=== PATIENT | female | born 1985 | race Caucasian/White ===

== ENCOUNTER → 2017-04-06 | Outpatient (CLI) | payer OTHER ==
[~2017-04-06] MED LIST: ASPIR LOW81 MG PO; ATIVAN1 MG PO; BACTRIM DS 8001 TA1 PO; BENADRYL ALLERG25 M4 PO; CLARITIN10 MG PO; COMPAZINE10 MG PO; DARVOCET N 1001 TAB PO; DAYPRO600 M1 PO; DEPO PROVER150 MG/M1 IM; Fioricet 325 MG1 TAB PO; HYDROCODONE BIT1 T11 PO; IBU-8800 MG PO; LOMOTIL 0.025 M1 TA1 PO; LOMOTIL 0.025 M1 TAB PO; MAXALT5 MG PO; MEDROL DOSEPAK4 MG PO; MOTRIN800 MG PO; NAPROSYN500 MG PO; NORCO 7.5-3251 EACH PO; OMNICEF300 MG PO; PERCOCET 325 MG1 TA7 PO; PRENATAL 1 PLUS1 TAB PO; ROBITUSSIN AC 110 ML PO; TAGAMET300 MG PO; VALIUM10 MG; VALIUM5 MG PO; VICODIN 5/500 505 MG PO; VICODIN 500 MG-1 TAB PO; ZANTAC 150150 MG PO; ZANTAC150 MG PO; ZITHROMAX Z PA250 MG PO; ZOFRAN4 MG PO
== END | disposition home or self-care (01) ==
LOC: CARD 13:30
DX: G47.33 Obstructive sleep apnea (adult) (pediatric) (principal); E66.01 Morbid (severe) obesity due to excess calories

== ENCOUNTER 2017-04-28 13:59 | Inpatient (IN) | payer OTHER ==
[~2017-04-28] VITALS: Ht 165.1 cm; Wt 124.3 kg
[2017-04-28] VITALS (10 sets, daily range): BP systolic 123–144; BP diastolic 64–85
--- NOTE | ~2017-04-28 | O ---
[place], [place] OPERATIVE NOTE NAME: JOANIE HIGGINS [facility] #: [id number] UNIT #: [id number] ROOM: 427 DOCTOR: DIMA NICOLAS MD BIRTHDATE: [birth year] DOS: 04/28/2017 PREOPERATIVE DIAGNOSIS: Acute appendicitis. POSTOPERATIVE DIAGNOSIS: Acute appendicitis. PROCEDURE: Laparoscopic appendectomy. SURGEON: Dima Nicolas MD [employer] MANAGER: JOSUE. ANESTHESIA: General with endotracheal intubation. INDICATIONS: This is a 32-year-old lady who was admitted with abdominal pain and a CAT scan that showed appendicitis with appendicolith. It was decided to take the patient to the operating room for a laparoscopic, possible open appendectomy. The procedure and its complications were explained to the patient in detail preoperatively. Complications that were discussed included but were not limited to bleeding, infection, hematoma/seroma/abscess formation, prolonged postoperative pain, damage to underlying vital structures and incisional hernia formation. She agreed to proceed. DESCRIPTION OF PROCEDURE: After identifying the patient, the patient was brought to the operating suite and laid in the supine position. After induction of general anesthesia, a timeout procedure was called and a Hyman catheter was inserted into the urinary bladder. The parts were then painted and draped in the usual sterile fashion. An incision below the umbilicus in a transverse fashion was made. The skin and the subcutaneous tissue were incised in the line of the incision. The fascia was incised vertically and a 10 mm port was introduced into the peritoneal cavity. A pneumoperitoneum was created. Under direct vision, a right upper quadrant incision of 10 mm and a suprapubic incision of 5 mm was made and appropriate sized ports were introduced. The cecum had some adhesions, which were taken down with the help of electrocautery. The appendix inflamed, was found to be in retrocecal position. It was dissected away from the retroperitoneum structures and held up with an Endo Toano forceps. Thereafter, the base of the appendix as well as the mesoappendix was stapled across with the help of an Endo-CHU stapler. The appendix was then placed in an EndoCatch bag and removed from the peritoneal cavity and sent for histopathological diagnosis. Thereafter, the mesoappendix and the region of the stomach was visualized for any bleeding and there was no bleeding seen. The area was irrigated with the help of saline and again hemostasis was confirmed. Thereafter, the right upper quadrant and the suprapubic port was removed and there was no bleeding seen. The umbilical port was also removed and 0 Vicryl was used to close the fascial defect. Thereafter, the subcutaneous tissue was irrigated and the edges of the skin were infiltrated with 1% plain lidocaine and was approximated with the help of 4-0 Vicryl in a subcuticular running fashion. Dressings were placed. Hyman catheter was removed. The patient was extubated uneventfully and brought back to the recovery room in a stable fashion. There were no complications. Dr. Ch [place], [place] OPERATIVE NOTE NAME: JOANIE HIGGINS UNIT #: [id number] ROOM: [facility] DOCTOR: DIMA NICOLAS MD BIRTHDATE: [birth year] Maria Isabel, the attending surgeon, was present throughout the operating case. Dima Nicolas MD CM:OPRECORD:OPERATIVE NOTE 41 [id number] DIMA NICOLAS MD 04/28/171930 interface
[2017-04-28 14:30] LABS: BASO # 0.1 10*3/uL (0.0-0.1); BASO % 0.3 % (0.0-1.0); EOS # 0.2 10*3/uL (0.0-0.4); EOS % 1.1 % (1.0-4.0); HEMATOCRIT 43.4 % (37.0-47.0); HEMOGLOBIN 14.2 g/dl (12.0-16.0); LYMPH # 4.4 10*3/uL (1.3-4.4); LYMPH % 26.2 % (27.0-41.0); MEAN CELL VOLUME 86.1 fl (81.0-99.0); MEAN CORPUSCULAR HGB 28.2 pg (27.0-31.0); MEAN CORPUSCULAR HGB CONC 32.7 g/dl (33.0-37.0); MONO # 1.3 10*3/uL (0.1-1.0); MONO % 7.8 % (3.0-9.0); NEUT # 10.8 10*3/uL (2.3-7.9); NEUT % 63.7 % (47.0-73.0); PLATELET COUNT AUTOMATED 268 10*3/uL (130-400); RED BLOOD COUNT 5.04 10*6/uL (4.10-5.10); RED CELL DISTRI WIDTH 14.5 % (0-14.5); WHITE BLOOD COUNT 16.9 10*3/uL (4.8-10.8)
[2017-04-28 14:35] LABS: BILIRUBIN NEGATIVE (NEGATIVE); BLOOD NEGATIVE (NEGATIVE); CLARITY CLEAR (CLEAR); COLOR YELLOW (YELLOW); GLUCOSE NEGATIVE (NEGATIVE); KETONE NEGATIVE (NEGATIVE); LEUKO ESTERASE NEGATIVE (NEGATIVE); NITRITE NEGATIVE (NEGATIVE); SPECIFIC GRAVITY <= 1.005 (1.005-1.030); UROBILINOGEN 0.2 E.U./dl (0.2-1.0)
[2017-04-28 14:42] LABS: BACTERIA 1+; RBC 0-2 rbc/hpf (0-2)
[2017-04-28 14:45] LABS: ALBUMIN 3.4 gm/dl (3.1-4.5); ALKALINE PHOSPHATASE 137 U/L (45-117); BUN 18 mg/dl (7-24); CHLORIDE 102 mmol/L (98-107); CREATININE 0.86 mg/dL (0.55-1.02); LIPASE 131 U/L (73-393); POTASSIUM 3.3 mmol/L (3.5-5.1); SGOT/AST 14 IU/L (3-35); SGPT/ALT 35 U/L (12-78); SODIUM 139 mmol/L (136-145); TOTAL PROTEIN 7.1 gm/dL (6.4-8.2)
--- NOTE | 2017-04-28 16:21 | NUR ---
A 32, admitted to , under the services of JOHN Tang DO with a diagnosis of ELEVATED BLOOD PRESSURE READING/ACUTE BARBIE. Chief complaint is PAIN. Patient arrived via stretcher from ER. Initial assessment completed. Vital signs taken and recorded. JOHN TANG DO notified of admission to the unit. Orders received. See assessment for past medical history, medications and allergies. Patient and/or family oriented to unit. [facility] visitation policy reviewed. Clothing/patient valuable form completed. ANALIA LOW
[2017-04-28] MEDS ORDERED: NORCO 7.5-3251 EACH PO (16:25)
--- NOTE | 2017-04-28 16:25 | NUR ---
PATIENTS HOME MEDIATION VERIFIED. DR HAGAN NOTIFIED.
--- NOTE | 2017-04-28 16:25 | NUR ---
ASSESSMENT COMPLETE. SKIN INTACT WITH NO WOUNDS. PT WANTS FLU SHOT ON DC.
--- NOTE | 2017-04-28 16:31 | NUR ---
PATIENT PLACED ON PULSE OX AND MONITOR DUE TO NARCOTIC ADMINISTRATION
--- NOTE | 2017-04-28 16:50 | NUR ---
PT LEFT FLOOR VIA BED FOR SCHEDULED SURGERY.
--- NOTE | 2017-04-28 21:30 | NUR ---
prn morphine given for 5/10 abdominal pain.
--- NOTE | 2017-04-28 21:30 | NUR ---
PRN MORPHINE GIVEN FOR 5/10 ABDOMINAL/INCISIONAL PAIN.
--- NOTE | 2017-04-28 22:30 | NUR ---
PRN PAIN MED EFFECTIVE, PT RATES PAIN 3/10.
[2017-04-29] VITALS: BP 113/53
--- NOTE | 2017-04-29 00:04 | NUR ---
prn pain med given for a 3/10 incisional pain.
--- NOTE | 2017-04-29 00:05 | NUR ---
prn restoril given for sleep.
--- NOTE | 2017-04-29 01:00 | NUR ---
prn pain med and restoril appears effective, pt is sleeping, respirations easy and regular.
--- NOTE | 2017-04-29 04:34 | NUR ---
prn pain med given for a 6/10 incisional pain.
--- NOTE | 2017-04-29 05:30 | NUR ---
prn pain med minimally effective, pt reports 4/10 incisional pain.
--- NOTE | 2017-04-29 05:46 | NUR ---
prn pain med given for pt report 4/10 incisional pain.
[2017-04-29 06:05] LABS: BASO % 0.1 % (0.0-1.0); HEMATOCRIT 38.7 % (37.0-47.0); HEMOGLOBIN 12.4 g/dl (12.0-16.0); LYMPH # 1.8 10*3/uL (1.3-4.4); LYMPH % 9.5 % (27.0-41.0); MEAN CELL VOLUME 86.8 fl (81.0-99.0); MEAN CORPUSCULAR HGB 27.8 pg (27.0-31.0); MEAN PLATELET VOLUME 10.1 fl (9.6-12.3); MONO # 0.7 10*3/uL (0.1-1.0); NEUT # 15.8 10*3/uL (2.3-7.9); NEUT % 85.4 % (47.0-73.0); PLATELET COUNT AUTOMATED 268 10*3/uL (130-400); RED BLOOD COUNT 4.46 10*6/uL (4.10-5.10); RED CELL DISTRI WIDTH 14.3 % (0-14.5); WHITE BLOOD COUNT 18.5 10*3/uL (4.8-10.8)
[2017-04-29 06:36] LABS: BUN 13 mg/dl (7-24); CHLORIDE 101 mmol/L (98-107); CHOLESTEROL 181 mg/dL (<200); CREATININE 0.75 mg/dL (0.55-1.02); MAGNESIUM 2.1 mg/dL (1.5-2.1); PHOSPHOROUS 3.9 mg/dL (2.5-4.9); POTASSIUM 4.1 mmol/L (3.5-5.1); SGOT/AST 24 IU/L (3-35); SGPT/ALT 34 U/L (12-78); SODIUM 138 mmol/L (136-145); TRIGLYCERIDES 69 mg/dl (<150); VLDL CHOLESTEROL 14 mg/dL (6-40)
[2017-04-29 06:43] LABS: ALKALINE PHOSPHATASE 113 U/L (45-117); HDL CHOLESTEROL 47 mg/dl (40-60); LDL CHOLESTEROL 120 mg/dL (9-159); THYROID STIM HORMONE (HS) 0.266 uIU/ml (0.358-4.75); TOTAL PROTEIN 6.3 gm/dL (6.4-8.2)
[2017-04-29 06:49] LABS: ACT PARTIAL THROMBO TIME 25.5 SECONDS (20.8-31.5)
[2017-04-29 07:47] LABS: VITAMIN D, 25-HYDROXY 17.4 ng/mL (30-100)
--- NOTE | 2017-04-29 08:15 | NUR ---
ASSESSMENT COMPLETE. LAP SITES X3 ALL SITES WELL APPROXIMATED, DERMABOND, SMALL AMOUNT OF OF DRIED BLOOD NOTED AT ALL THREE SITES. ECCHOMOSIS NOTED ON ABDOMEN. PT STATES ABDOMINAL PAIN, PT WANTS TO WAIT FOR PAIN MEDICATION UNTIL AFTER BREAKFAST. PT STATES PAIN MEDICAION WAS NOT EFFECTIVE THROUGHOUT THE NIGHT. PT WILL NOTIFY NURSING STAFF WITH NEEDS
[2017-04-29 08:30] VITALS: BP 137/68
--- NOTE | 2017-04-29 10:00 | NUR ---
IV IN RIGHT FOREARM INFILTRATED. IV REMOVED NEW IV PLACED IN LEFT AC. GOOD BLOOD RETURN. IV FLUIDS RUNNING. MORPHINE GIVEN. FOR PAIN OF 01/15
--- NOTE | 2017-04-29 10:26 | NUR ---
PT STATES ABDOMINAL PAIN 01/15. MORPHINE GIVEN. SEE SEP. WILL MONITOR FOR EFFECTIVENESS
--- NOTE | 2017-04-29 11:59 | NUR ---
SPOKE TO DR. BORREGO, FROM HIS STANDPOINT PATIENT MAY BE D/C HOME TODAY. HE WROTE A RX FOR NORCO, AND IS IN PATIENTS CHART. FOLLOW UP WITH HIM IN TWO WEEKS
--- NOTE | 2017-04-29 12:22 | NUR ---
PT STATES ABDOMINAL PAIN 02/15. NORCO GIVEN. SEE MAR
[2017-04-29 12:56] VITALS: BP 135/75
[2017-04-29] MEDS ORDERED: PERCOCET 7.5-31 EACH PO (13:03)
[2017-04-29] MEDS ORDERED: VITAMIN D5000 UNIT PO (13:03)
[2017-04-29] MEDS ORDERED: FLAGYL500 MG PO (13:17)
[2017-04-29] MEDS ORDERED: CIPRO500 MG PO (13:17)
--- NOTE | 2017-04-29 14:12 | NUR ---
Discharge instructions reviewed with patient/family. Patient receptive and verbalizes understanding. Follow-up care understood. Written instructions given to patient/family. rx given for percocet. rx for cipro and flagyl sent to pharmacy. iv taken out, dressing applied. patients here for discharge. LOLI ENCINAS
== END 2017-04-29 14:12 | disposition home or self-care (01) | DRG 853 ==
LOC: ED 13:59 → EDHOLD 15:56 → 4E 15:56
PROVIDERS: Nurse Practitioner Family; Surgery; ADMIT Internal Medicine
PROC: 0DTJ4ZZ Resection of Appendix, Percutaneous Endoscopic Approach (ICD-10-PCS; principal; 2017-04-28)
DX: A41.9 Sepsis, unspecified organism (principal); K65.9 Peritonitis, unspecified; E44.0 Moderate protein-calorie malnutrition; K76.0 Fatty (change of) liver, not elsewhere classified; Z68.42 Body mass index [BMI] 45.0-49.9, adult; K35.80 Unspecified acute appendicitis; E87.6 Hypokalemia; E66.01 Morbid (severe) obesity due to excess calories; R03.0 Elevated blood-pressure reading, without diagnosis of hypertension; M54.9 Dorsalgia, unspecified; G89.29 Other chronic pain; Z88.8 Allergy status to other drugs, medicaments and biological substances; Z79.899 Other long term (current) drug therapy; Z90.49 Acquired absence of other specified parts of digestive tract; Z90.89 Acquired absence of other organs; Z98.51 Tubal ligation status; Z82.49 Family history of ischemic heart disease and other diseases of the circulatory system; Z83.3 Family history of diabetes mellitus; Z84.89 Family history of other specified conditions

== ENCOUNTER 2017-05-04 15:34 | Inpatient (IN) | payer OTHER ==
[~2017-05-04] VITALS: Ht 165.1 cm; Wt 115.2 kg
[~2017-05-04 15:34] MED LIST changes: +CIPRO500 MG PO; +FLAGYL500 MG PO; +PERCOCET 7.5-31 EACH PO; +VITAMIN D5000 UNIT PO
[2017-05-04 15:44] VITALS: BP 122/70
[2017-05-04 16:37] LABS: BASO % 0.2 % (0.0-1.0); EOS # 0.2 10*3/uL (0.0-0.4); EOS % 1.3 % (1.0-4.0); HEMATOCRIT 38.4 % (37.0-47.0); HEMOGLOBIN 12.7 g/dl (12.0-16.0); LYMPH # 2.8 10*3/uL (1.3-4.4); LYMPH % 17.4 % (27.0-41.0); MEAN CELL VOLUME 84.8 fl (81.0-99.0); MEAN CORPUSCULAR HGB CONC 33.1 g/dl (33.0-37.0); MEAN PLATELET VOLUME 10.1 fl (9.6-12.3); MONO # 0.9 10*3/uL (0.1-1.0); MONO % 5.4 % (3.0-9.0); PLATELET COUNT AUTOMATED 257 10*3/uL (130-400); RED BLOOD COUNT 4.53 10*6/uL (4.10-5.10); RED CELL DISTRI WIDTH 14.2 % (0-14.5)
[2017-05-04 16:52] LABS: ALBUMIN 3.1 gm/dl (3.1-4.5); ALKALINE PHOSPHATASE 115 U/L (45-117); BUN 10 mg/dl (7-24); CHLORIDE 102 mmol/L (98-107); CREATININE 0.88 mg/dL (0.55-1.02); LIPASE 105 U/L (73-393); POTASSIUM 3.3 mmol/L (3.5-5.1); SGOT/AST 16 IU/L (3-35); SGPT/ALT 33 U/L (12-78); SODIUM 139 mmol/L (136-145); TOTAL PROTEIN 6.7 gm/dL (6.4-8.2)
--- NOTE | 2017-05-04 17:10 | NUR ---
PT VOICES MINIMAL PAIN RELIEF FROM MORPHINE.
--- NOTE | 2017-05-04 20:06 | NUR ---
A 32, admitted to , under the services of KERI Contreras DO with a diagnosis of SEPSIS. Chief complaint is ABDOMINAL PAIN. Patient arrived via stretcher from ER. Monitor applied. Initial assessment completed. Vital signs taken and recorded. KERI CONTRERAS DO notified of admission to the unit. Orders received. See assessment for past medical history, medications and allergies. Patient and/or family oriented to unit. [facility] visitation policy reviewed. Clothing/patient valuable form completed. ERICA CONTRERAS
[2017-05-04 20:08] VITALS: BP 146/65
[2017-05-04 20:34] VITALS: BP 146/65
--- NOTE | 2017-05-04 23:19 | NUR ---
GIVEN PRN RESTIRIL TO HELP THE PATIENT SLEEP.
--- NOTE | 2017-05-04 23:37 | NUR ---
DR. HOGUE CONTACTED REGARDING CT FINDINGS. HE RELATES HE IS IN THE SYSTEM NOW AND WILL LOOK AT THE REPORT AND PUT IN ORDERS IF NEEDED.
[2017-05-05] VITALS: BP 117/62
[2017-05-05 03:17] LABS: BASO % 0.2 % (0.0-1.0); EOS # 0.3 10*3/uL (0.0-0.4); EOS % 1.7 % (1.0-4.0); HEMATOCRIT 35.1 % (37.0-47.0); HEMOGLOBIN 11.4 g/dl (12.0-16.0); LYMPH # 3.3 10*3/uL (1.3-4.4); LYMPH % 22.2 % (27.0-41.0); MEAN CELL VOLUME 86.5 fl (81.0-99.0); MEAN CORPUSCULAR HGB 28.1 pg (27.0-31.0); MEAN CORPUSCULAR HGB CONC 32.5 g/dl (33.0-37.0); MEAN PLATELET VOLUME 9.8 fl (9.6-12.3); MONO % 6.8 % (3.0-9.0); NEUT # 10.3 10*3/uL (2.3-7.9); NEUT % 68.6 % (47.0-73.0); PLATELET COUNT AUTOMATED 224 10*3/uL (130-400); RED BLOOD COUNT 4.06 10*6/uL (4.10-5.10); RED CELL DISTRI WIDTH 14.3 % (0-14.5)
[2017-05-05 03:29] LABS: BUN 7 mg/dl (7-24); CHLORIDE 105 mmol/L (98-107); CREATININE 0.87 mg/dL (0.55-1.02); POTASSIUM 3.7 mmol/L (3.5-5.1); SODIUM 139 mmol/L (136-145)
[2017-05-05 03:34] LABS: PHOSPHOROUS 3.3 mg/dL (2.5-4.9)
[2017-05-05 06:53] LABS: VITAMIN D, 25-HYDROXY 32.3 ng/mL (30-100)
[2017-05-05 08:00] VITALS: BP 128/70
--- NOTE | 2017-05-05 08:19 | NUR ---
DR. FIGUEROA IN TO SEE PATIENT.
--- NOTE | 2017-05-05 10:09 | NUR ---
Patient seven days post op appendectomy. Three surgical incisions noted. No drainage noted. Patient's skin surrounding surgical incisions red, brown and yellow in color. Skin warm to touch and area is tender upon assessment. Doctor SALIMA is consulted for patient.
[2017-05-05 12:00] VITALS: BP 134/72
--- NOTE | 2017-05-05 15:14 | NUR ---
MEDICATED WITH TESSALON PERLES FOR COUGH.
--- NOTE | 2017-05-05 15:14 | NUR ---
MEDICATED WITH MORPHINE FOR ABD PAIN AROUND HER BELLY BUTTON. IV FLUIDS INFUSING.
[2017-05-05 16:00] VITALS: BP 132/77
--- NOTE | 2017-05-05 18:19 | NUR ---
NO FURTHER COMPLAINTS OF PAIN OR COUGH.
[2017-05-05 20:00] VITALS: BP 125/67
--- NOTE | 2017-05-05 20:00 | NUR ---
AAOX3 LYING IN BED. PT. C/O MS NOT WORKING, SLEEPING PILL NOT WORKING & TESSALON PEARLES NOT WORKING. INFORMED PATIENT THAT I WOULD NOTIFY THE DOCTOR. PT. VERBALIZED UNDERSTANDING.
--- NOTE | 2017-05-05 20:50 | NUR ---
CALLED DR. MCELROY PERTAINING TO PT. C/O MORPHINE NOT WORKING & TORO RENEE NOT WORKING. NEW ORDER RECEIVED FOR CEPACOL.
--- NOTE | 2017-05-05 23:30 | NUR ---
MS GIVEN FOR C/O ABDOMINAL DISCOMFORT.
[2017-05-06] VITALS: BP 124/78
--- NOTE | 2017-05-06 02:30 | NUR ---
RESTING IN BED WITH EYES CLOSED; AROUSES EASILY UPON ENTERING ROOM. VOICES NO C/O PAIN OR DISCOMFORT AT THIS TIME. CALL LIGHT WITHIN REACH.
--- NOTE | 2017-05-06 06:00 | NUR ---
UP TO BATHROOM. VOICES NO C/O.
[2017-05-06 06:02] LABS: BASO % 0.2 % (0.0-1.0); EOS # 0.2 10*3/uL (0.0-0.4); HEMATOCRIT 34.7 % (37.0-47.0); HEMOGLOBIN 11.1 g/dl (12.0-16.0); LYMPH # 2.9 10*3/uL (1.3-4.4); LYMPH % 23.8 % (27.0-41.0); MEAN CELL VOLUME 86.8 fl (81.0-99.0); MEAN CORPUSCULAR HGB 27.8 pg (27.0-31.0); MEAN PLATELET VOLUME 10.1 fl (9.6-12.3); MONO # 0.9 10*3/uL (0.1-1.0); MONO % 7.5 % (3.0-9.0); NEUT % 66.1 % (47.0-73.0); PLATELET COUNT AUTOMATED 217 10*3/uL (130-400); RED CELL DISTRI WIDTH 14.5 % (0-14.5)
[2017-05-06 06:28] LABS: ALBUMIN 2.8 gm/dl (3.1-4.5); ALKALINE PHOSPHATASE 92 U/L (45-117); BUN 7 mg/dl (7-24); CHLORIDE 106 mmol/L (98-107); CREATININE 0.84 mg/dL (0.55-1.02); POTASSIUM 3.5 mmol/L (3.5-5.1); SGOT/AST 8 IU/L (3-35); SGPT/ALT 23 U/L (12-78); SODIUM 141 mmol/L (136-145); TOTAL PROTEIN 5.8 gm/dL (6.4-8.2)
[2017-05-06 08:00] VITALS: BP 120/55
--- NOTE | 2017-05-06 10:00 | NUR ---
AM MEDS TAKEN.
[2017-05-06 12:00] VITALS: BP 123/56
--- NOTE | 2017-05-06 14:05 | NUR ---
RESTING AT PRESENT.
[2017-05-06 16:00] VITALS: BP 130/54
[2017-05-06 20:00] VITALS: BP 120/62
--- NOTE | 2017-05-06 23:30 | NUR ---
PT STATES THAT MORPHINE WAS EFFECTIVE FOR ABD PAIN BUT NOW HAS A H/A D/T COUGHING. ATTEMPTED TO CALL ORGANIZATION DEVELOPMENT CONSULTANT. NO ANSWER AT THIS TIME. WILL ATTEMPT AGAIN.
[2017-05-07] VITALS: BP 106/54
--- NOTE | 2017-05-07 00:25 | NUR ---
DR. SEWELL NOTIFIED OF PT HARSH COUGH AND H/A. N.O. RCVD AND NOTED FOR TYLENOL 975 MG X1 NOW, TYLENOL 650 MG PO PRN EVERY 6 HRS, AND STAT CXR. PT MADE AWARE.
--- NOTE | 2017-05-07 01:40 | NUR ---
PT MEDICATED WITH 1 TIME DOSE OF TYLENOL FOR C/O H/A. WATCHING TV IN BED AT THIS TIME.
--- NOTE | 2017-05-07 03:32 | NUR ---
24 HR chart check completed.
--- NOTE | 2017-05-07 06:11 | NUR ---
PT RESTING QUIETLY IN BED WITH EYES CLOSED. AWOKE EASILY FOR AM MED. CONT. TO HAVE THE HARSH COUGH. CXR RESULTS REVIEWED W/PT. ADVISED PT TO SPEAK W/. THIS MORNING WHEN THEY MAKE ROUNDS RE PERSISTENT COUGH. PT AGREEABLE. CALL LIGHT IN REACH.
[2017-05-07 06:24] LABS: BASO % 0.2 % (0.0-1.0); EOS # 0.3 10*3/uL (0.0-0.4); EOS % 1.9 % (1.0-4.0); HEMATOCRIT 35.9 % (37.0-47.0); HEMOGLOBIN 11.6 g/dl (12.0-16.0); LYMPH # 3.3 10*3/uL (1.3-4.4); LYMPH % 23.9 % (27.0-41.0); MEAN CELL VOLUME 88.2 fl (81.0-99.0); MEAN CORPUSCULAR HGB 28.5 pg (27.0-31.0); MEAN CORPUSCULAR HGB CONC 32.3 g/dl (33.0-37.0); MEAN PLATELET VOLUME 10.1 fl (9.6-12.3); MONO % 7.1 % (3.0-9.0); NEUT % 66.4 % (47.0-73.0); PLATELET COUNT AUTOMATED 230 10*3/uL (130-400); RED BLOOD COUNT 4.07 10*6/uL (4.10-5.10); RED CELL DISTRI WIDTH 14.5 % (0-14.5); WHITE BLOOD COUNT 13.6 10*3/uL (4.8-10.8)
[2017-05-07 06:45] LABS: BUN 7 mg/dl (7-24); CHLORIDE 105 mmol/L (98-107); CREATININE 0.89 mg/dL (0.55-1.02); POTASSIUM 3.8 mmol/L (3.5-5.1); SODIUM 140 mmol/L (136-145)
[2017-05-07 08:00] VITALS: BP 134/69
--- NOTE | 2017-05-07 09:00 | NUR ---
[employer] in to talk to patient. Patient states lives at home with . There are few steps in the home. Physician: tye tobar Pharmacy: [facility] [facility]: none Patient's level of ADLs: INDEPENDENT Patient has working utilities: all working DME: none Follow-up physician's appointment after d/c: will be made by hospitalist nurse director upon discharge Does patient want to access PORTAL?: no Discharge plan discussed with patient, patient lives at home with , she is independent in adls and ambulation patient states she will be going home when able and denies any home needs. BAILEY ESTRADA
[2017-05-07 12:00] VITALS: BP 117/45
[2017-05-07 16:00] VITALS: BP 123/65
--- NOTE | 2017-05-07 16:18 | NUR ---
NORCO GIVEN FOR PAIN. 12/16. ABDOMINAL PAIN.
--- NOTE | 2017-05-07 17:12 | NUR ---
NORCO EFFECTIVE FOR PAIN.
--- NOTE | 2017-05-07 19:30 | NUR ---
PT AMBULATING IN ROOM AT THIS TIME. CONTINUES TO HAVE THE HARSH NON PRODUCTIVE COUGH. CONT. TO C/O ABD PAIN. PT ADVISED THAT SHE WAS MEDICATED AT 1610 AND IS NOT DUE FOR PAIN MEDS AT THIS TIME. PT ACKNOWLEDGES. PT C/O NEW HL IN LEFT WRIST IRRITATING HER D/T LOCATION. IV FLUSHES WITHOUT DIFF. IV ZOSYN INFUSING WITHOUT DIFF AT THIS TIME.
[2017-05-07 20:00] VITALS: BP 140/79
--- NOTE | 2017-05-07 22:30 | NUR ---
PT RESTING QUIETLY IN BED AT THIS TIME. NO FURTHER S/S OF DISTRESS NOTED. PRN NORCO EFFECTIVE FOR PAIN RELIEF.
[2017-05-08] VITALS: BP 105/53
--- NOTE | 2017-05-08 04:05 | NUR ---
24 HR chart check completed.
--- NOTE | 2017-05-08 05:41 | NUR ---
PT ACCEPTED PRN CEPACOL TO SUPRESS COUGH AFTER PT TEACHING AND ENCOURAGEMENT. RESTING QUIETLY IN BED AT THIS TIME.
[2017-05-08 08:00] VITALS: BP 131/68
--- NOTE | 2017-05-08 09:00 | NUR ---
case management visits with patient, patient denies any home needs at this time
[2017-05-08 09:33] LABS: BASO % 0.2 % (0.0-1.0); EOS # 0.2 10*3/uL (0.0-0.4); EOS % 1.6 % (1.0-4.0); HEMATOCRIT 35.2 % (37.0-47.0); HEMOGLOBIN 11.4 g/dl (12.0-16.0); LYMPH % 16.2 % (27.0-41.0); MEAN CELL VOLUME 86.7 fl (81.0-99.0); MEAN CORPUSCULAR HGB 28.1 pg (27.0-31.0); MEAN CORPUSCULAR HGB CONC 32.4 g/dl (33.0-37.0); MEAN PLATELET VOLUME 9.6 fl (9.6-12.3); MONO # 0.6 10*3/uL (0.1-1.0); MONO % 4.7 % (3.0-9.0); NEUT # 9.5 10*3/uL (2.3-7.9); NEUT % 76.7 % (47.0-73.0); PLATELET COUNT AUTOMATED 217 10*3/uL (130-400); RED BLOOD COUNT 4.06 10*6/uL (4.10-5.10); RED CELL DISTRI WIDTH 14.7 % (0-14.5); WHITE BLOOD COUNT 12.4 10*3/uL (4.8-10.8)
[2017-05-08 10:15] LABS: BUN 7 mg/dl (7-24); CHLORIDE 101 mmol/L (98-107); POTASSIUM 3.5 mmol/L (3.5-5.1); SODIUM 136 mmol/L (136-145)
[2017-05-08 10:16] LABS: CREATININE 1.04 mg/dL (0.55-1.02)
[2017-05-08 12:00] VITALS: BP 143/65
[2017-05-08 16:00] VITALS: BP 124/63
[2017-05-08 20:00] VITALS: BP 125/62
--- NOTE | 2017-05-08 23:00 | NUR ---
PT IV HL WRAPPED FOR PT TO SHOWER. PT VOICED NO C/O AT PRESENT. PLEASANT AND TALKATIVE. PT STATES THAT COUGH HAS BEEN LESS FREQUENT.
[2017-05-09] VITALS: BP 118/59
--- NOTE | 2017-05-09 00:50 | NUR ---
24 HR chart check completed.
[2017-05-09 05:55] LABS: BASO % 0.2 % (0.0-1.0); EOS # 0.2 10*3/uL (0.0-0.4); EOS % 1.8 % (1.0-4.0); HEMATOCRIT 33.9 % (37.0-47.0); HEMOGLOBIN 10.8 g/dl (12.0-16.0); LYMPH # 2.2 10*3/uL (1.3-4.4); LYMPH % 17.3 % (27.0-41.0); MEAN CELL VOLUME 87.1 fl (81.0-99.0); MEAN CORPUSCULAR HGB 27.8 pg (27.0-31.0); MEAN CORPUSCULAR HGB CONC 31.9 g/dl (33.0-37.0); MONO # 0.9 10*3/uL (0.1-1.0); MONO % 6.8 % (3.0-9.0); NEUT # 9.2 10*3/uL (2.3-7.9); NEUT % 73.5 % (47.0-73.0); PLATELET COUNT AUTOMATED 217 10*3/uL (130-400); RED BLOOD COUNT 3.89 10*6/uL (4.10-5.10); RED CELL DISTRI WIDTH 14.9 % (0-14.5); WHITE BLOOD COUNT 12.5 10*3/uL (4.8-10.8)
[2017-05-09 06:14] LABS: BUN 7 mg/dl (7-24); CHLORIDE 104 mmol/L (98-107); CREATININE 0.93 mg/dL (0.55-1.02); POTASSIUM 3.4 mmol/L (3.5-5.1); SODIUM 141 mmol/L (136-145)
--- NOTE | 2017-05-09 06:35 | NUR ---
PT RESTING QUIETLY IN BED WITH EYES CLOSED. NO S/S OF DISTRESS NOTED.
[2017-05-09 08:00] VITALS: BP 126/57
--- NOTE | 2017-05-09 08:25 | NUR ---
RESTING QUIETLY NO C/O NO DISTRESS NOTED. ABDOMINAL INCISIONS FROM LAB APPEN HEALED. ENTIRE ABDOMEN RED AND ECCHYMOTIC. DRY COUGH NOTED. SEE SHIFT ASSESSMENT.
--- NOTE | 2017-05-09 09:25 | NUR ---
case management visits with patient, patient denies any needs
[2017-05-09 16:00] VITALS: BP 100/74
--- NOTE | 2017-05-09 19:47 | NUR ---
RN REVIEWED LAB RESULTS AND ORDERS
[2017-05-09 20:00] VITALS: BP 125/46
--- NOTE | 2017-05-09 20:40 | NUR ---
PT HAS TEMP OF 99.3. MEDICATED WITH TYLENOL WILL CONTINUE TO MONITOR
--- NOTE | 2017-05-09 20:45 | NUR ---
PT COMPLAINS FOR NAUSEA. MEDICATED WITH ZOFRAN WITH GOOD EFFECT.
[2017-05-10] VITALS: BP 100/58
[2017-05-10 06:31] LABS: BUN 8 mg/dl (7-24); CHLORIDE 105 mmol/L (98-107); CREATININE 0.98 mg/dL (0.55-1.02); POTASSIUM 3.8 mmol/L (3.5-5.1); SODIUM 141 mmol/L (136-145)
[2017-05-10 06:42] LABS: BASO % 0.2 % (0.0-1.0); EOS # 0.2 10*3/uL (0.0-0.4); HEMATOCRIT 35.7 % (37.0-47.0); HEMOGLOBIN 11.6 g/dl (12.0-16.0); LYMPH # 1.8 10*3/uL (1.3-4.4); LYMPH % 15.5 % (27.0-41.0); MEAN CELL VOLUME 88.6 fl (81.0-99.0); MEAN CORPUSCULAR HGB 28.8 pg (27.0-31.0); MEAN CORPUSCULAR HGB CONC 32.5 g/dl (33.0-37.0); MEAN PLATELET VOLUME 10.2 fl (9.6-12.3); MONO # 0.7 10*3/uL (0.1-1.0); MONO % 5.9 % (3.0-9.0); NEUT # 8.5 10*3/uL (2.3-7.9); NEUT % 75.9 % (47.0-73.0); PLATELET COUNT AUTOMATED 231 10*3/uL (130-400); RED BLOOD COUNT 4.03 10*6/uL (4.10-5.10); RED CELL DISTRI WIDTH 14.9 % (0-14.5); WHITE BLOOD COUNT 11.3 10*3/uL (4.8-10.8)
[2017-05-10 08:00] VITALS: BP 117/57
--- NOTE | 2017-05-10 08:00 | NUR ---
RESTING QUIETLY NO C/O NO DISTRESS NOTED. ABDOMEN HAS SOME BRUISING AND REDNESS BUT PT STATES MUCH BETTER THAN ON ADMISSION. SEE SHIFT ASSESSMENT. WILL CONTINUE TO MONITOR.
--- NOTE | 2017-05-10 09:00 | NUR ---
case management visits with patient, patient denies any home needs
[2017-05-10] MEDS ORDERED: ORGAN-1 NR200 MG PO (11:33)
[2017-05-10] MEDS ORDERED: CEPHALEXIN500 M1 PO (11:33)
--- NOTE | 2017-05-10 12:34 | NUR ---
DISCHARGED TO HOME IN CARE OF . NO WOUND PHOTOS TAKEN DUE TO AREAS ARE CLOSED, WITH NO DRAINAGE AND NO REDNESS. ABDOMEN REMAINS ECCHYMOTIC. PT INSTRUCTED TO FOLLOW UP WITH DR PRICE AND DR BORREGO.
== END 2017-05-10 12:34 | disposition home or self-care (01) | DRG 872 ==
LOC: ED 15:34 → EDHOLD 18:57 → 4E 18:57
PROVIDERS: Family Medicine; Internal Medicine; Physician Assistant; Student in an Organized Health Care Education/Training Program; ADMIT Internal Medicine
DX: A41.9 Sepsis, unspecified organism (principal); E66.01 Morbid (severe) obesity due to excess calories; K76.0 Fatty (change of) liver, not elsewhere classified; L03.311 Cellulitis of abdominal wall; Z68.41 Body mass index [BMI] 40.0-44.9, adult; E87.6 Hypokalemia; R73.9 Hyperglycemia, unspecified; D64.9 Anemia, unspecified; G89.29 Other chronic pain; M54.9 Dorsalgia, unspecified; Z90.49 Acquired absence of other specified parts of digestive tract; Z90.89 Acquired absence of other organs; Z98.51 Tubal ligation status; Z87.891 Personal history of nicotine dependence; Z88.8 Allergy status to other drugs, medicaments and biological substances; Z79.899 Other long term (current) drug therapy; Z82.49 Family history of ischemic heart disease and other diseases of the circulatory system; Z83.3 Family history of diabetes mellitus; Z84.89 Family history of other specified conditions; Z88.6 Allergy status to analgesic agent

== ENCOUNTER 2018-05-18 05:31 | Emergency (ER) | payer OTHER ==
[~2018-05-18] VITALS: Ht 167.6 cm; Wt 89.4 kg
[2018-05-18 05:31] VITALS: BP 122/80
[~2018-05-18 05:31] MED LIST changes: +CEPHALEXIN500 M1 PO; +ORGAN-1 NR200 MG PO
== END 2018-05-18 07:21 | disposition home or self-care (01) ==
LOC: ED 05:31
DX: M25.532 Pain in left wrist (principal); M25.561 Pain in right knee; M25.562 Pain in left knee; G89.29 Other chronic pain; E66.01 Morbid (severe) obesity due to excess calories; Z88.8 Allergy status to other drugs, medicaments and biological substances; Z88.6 Allergy status to analgesic agent; Z90.49 Acquired absence of other specified parts of digestive tract; Z87.891 Personal history of nicotine dependence; V89.2XXA Person injured in unspecified motor-vehicle accident, traffic, initial encounter; Y93.89 Activity, other specified; Y92.488 Other paved roadways as the place of occurrence of the external cause; Y99.8 Other external cause status

== ENCOUNTER 2019-03-14 01:36 | Emergency (ER) | payer OTHER ==
[~2019-03-14] VITALS: Ht 167.6 cm; Wt 84.8 kg
[2019-03-14 01:39] VITALS: BP 125/70
[2019-03-14] MEDS ORDERED: HYDROCODONE-AC1 EAC1 PO (02:03)
[2019-03-14 02:48] LABS: BASO % 0.3 % (0.0-1.0); EOS # 0.1 10*3/uL (0.0-0.4); EOS % 1.3 % (1.0-4.0); HEMATOCRIT 39.8 % (37.0-47.0); HEMOGLOBIN 13.3 g/dl (12.0-16.0); LYMPH # 2.7 10*3/uL (1.3-4.4); LYMPH % 24.5 % (27.0-41.0); MEAN CELL VOLUME 88.4 fl (81.0-99.0); MEAN CORPUSCULAR HGB 29.6 pg (27.0-31.0); MEAN CORPUSCULAR HGB CONC 33.4 g/dl (33.0-37.0); MEAN PLATELET VOLUME 10.4 fl (9.6-12.3); MONO # 0.8 10*3/uL (0.1-1.0); MONO % 7.2 % (3.0-9.0); NEUT # 7.4 10*3/uL (2.3-7.9); NEUT % 66.4 % (47.0-73.0); PLATELET COUNT AUTOMATED 220 10*3/uL (130-400); WHITE BLOOD COUNT 11.2 10*3/uL (4.8-10.8)
[2019-03-14 03:00] LABS: BUN 14 mg/dl (7-24); CHLORIDE 108 mmol/L (98-107); CREATININE 0.83 mg/dL (0.55-1.02); POTASSIUM 3.6 mmol/L (3.5-5.1); SODIUM 141 mmol/L (136-145)
[2019-03-14] MEDS ORDERED: MAXALT10 MG PO (03:15)
[2019-03-14] MEDS ORDERED: ZOFRAN4 MG PO (03:15)
== END 2019-03-14 03:28 | disposition home or self-care (01) ==
LOC: ED 01:36
PROVIDERS: Emergency Medicine Emergency Medical Services
DX: G43.909 Migraine, unspecified, not intractable, without status migrainosus (principal); G89.29 Other chronic pain; E66.01 Morbid (severe) obesity due to excess calories; Z88.8 Allergy status to other drugs, medicaments and biological substances; Z88.6 Allergy status to analgesic agent; Z90.49 Acquired absence of other specified parts of digestive tract; Z87.891 Personal history of nicotine dependence

== ENCOUNTER → 2020-06-13 | Outpatient (CLI) | payer OTHER ==
[~2020-06-13] MED LIST changes: +HYDROCODONE-AC1 EAC1 PO; +MAXALT10 MG PO
== END | disposition home or self-care (01) ==
LOC: COVID19 13:01
PROVIDERS: ATTEND Internal Medicine
DX: U07.1 COVID-19 (principal)

== ENCOUNTER → 2021-02-06 | Outpatient (CLI) | payer OTHER ==
[2021-02-06 10:39] LABS: BASO % 0.2 % (0.0-1.0); BILIRUBIN Negative (Negative); BLOOD Negative (Negative); CLARITY Turbid (Clear); COLOR Yellow (Yellow); EOS # 0.1 10*3/uL (0.0-0.4); EOS % 1.4 % (1.0-4.0); GLUCOSE Negative (Negative); HEMATOCRIT 44.1 % (37.0-47.0); KETONE Negative (Negative); LEUKO ESTERASE Negative (Negative); LYMPH # 1.8 10*3/uL (1.3-4.4); LYMPH % 27.4 % (27.0-41.0); MEAN CELL VOLUME 88.4 fl (81.0-99.0); MEAN CORPUSCULAR HGB 28.5 pg (27.0-31.0); MEAN CORPUSCULAR HGB CONC 32.2 g/dl (33.0-37.0); MEAN PLATELET VOLUME 10.3 fl (9.6-12.3); MONO # 0.6 10*3/uL (0.1-1.0); MONO % 8.5 % (3.0-9.0); NEUT # 4.1 10*3/uL (2.3-7.9); NEUT % 62.2 % (47.0-73.0); NITRITE Negative (Negative); PLATELET COUNT AUTOMATED 210 10*3/uL (130-400); RED BLOOD COUNT 4.99 10*6/uL (4.10-5.10); RED CELL DISTRI WIDTH 13.6 % (0-14.5); RETICULOCYTE % 1.77 % (0.50-2.50); WHITE BLOOD COUNT 6.6 10*3/uL (4.8-10.8)
[2021-02-06 11:10] LABS: ALBUMIN 3.6 gm/dl (3.1-4.5); ALKALINE PHOSPHATASE 105 U/L (45-117); BUN 15 mg/dl (7-24); CHLORIDE 109 mmol/L (98-107); CHOLESTEROL 164 mg/dL (<200); CREATININE 0.77 mg/dL (0.55-1.02); GAMMA GLUTAMYL TRANSPEPTIDASE 19 U/L (5-55); IRON 56 ug/dL (50-170); LDL CHOLESTEROL 102 mg/dL (9-159); POTASSIUM 3.7 mmol/L (3.5-5.1); SGOT/AST 9 IU/L (3-35); SGPT/ALT 16 U/L (12-78); SODIUM 138 mmol/L (136-145); T3 UPTAKE 30 % (31-39); TOTAL IRON BINDING CAPACITY 278 ug/dl (250-450); TOTAL PROTEIN 7.1 gm/dL (6.4-8.2); TRIGLYCERIDES 67 mg/dl (<150)
[2021-02-06 11:17] LABS: THYROID STIM HORMONE (HS) 0.524 uIU/ml (0.358-4.75); THYROXINE (T4) TOTAL 10.5 ug/dl (4.8-13.9)
[2021-02-06 12:07] LABS: BACTERIA 2+; CALCIUM OXALATE CRYSTALS 1+
[2021-02-06 12:29] LABS: FERRITIN 54.9 ng/mL (10.0-291.0)
== END | disposition home or self-care (01) ==
LOC: LAB 10:09
PROVIDERS: ATTEND Family Medicine
DX: E55.9 Vitamin D deficiency, unspecified (principal); E78.5 Hyperlipidemia, unspecified; R53.83 Other fatigue; R79.89 Other specified abnormal findings of blood chemistry

== ENCOUNTER → 2021-08-22 | Outpatient (CLI) | payer OTHER ==
[2021-08-22 10:29] LABS: BILIRUBIN Negative (Negative); BLOOD Negative (Negative); CLARITY Cloudy (Clear); COLOR Yellow (Yellow); GLUCOSE Negative (Negative); KETONE Negative (Negative); LEUKO ESTERASE Trace (Negative); NITRITE Negative (Negative); SPECIFIC GRAVITY 1.025 (1.001-1.030)
[2021-08-22 10:36] LABS: BASO % 0.3 % (0.0-1.0); EOS # 0.1 10*3/uL (0.0-0.4); EOS % 1.1 % (1.0-4.0); HEMATOCRIT 43.9 % (37.0-47.0); LYMPH # 1.7 10*3/uL (1.3-4.4); LYMPH % 26.6 % (27.0-41.0); MEAN CELL VOLUME 87.3 fl (81.0-99.0); MEAN CORPUSCULAR HGB 29.6 pg (27.0-31.0); MEAN CORPUSCULAR HGB CONC 33.9 g/dl (33.0-37.0); MEAN PLATELET VOLUME 10.4 fl (9.6-12.3); MONO # 0.4 10*3/uL (0.1-1.0); MONO % 6.2 % (3.0-9.0); NEUT # 4.2 10*3/uL (2.3-7.9); NEUT % 65.5 % (47.0-73.0); PLATELET COUNT AUTOMATED 188 10*3/uL (130-400); RED BLOOD COUNT 5.03 10*6/uL (4.10-5.10); RED CELL DISTRI WIDTH 13.1 % (0-14.5); RETICULOCYTE % 1.75 % (0.50-2.50); WHITE BLOOD COUNT 6.4 10*3/uL (4.8-10.8)
[2021-08-22 11:27] LABS: VITAMIN D, 25-HYDROXY 28.6 ng/mL (30-100)
[2021-08-22 11:28] LABS: FERRITIN 99.5 ng/mL (10.0-291.0)
[2021-08-22 11:32] LABS: CHLORIDE 107 mmol/L (98-107); POTASSIUM 3.6 mmol/L (3.5-5.1); SODIUM 141 mmol/L (136-145)
[2021-08-22 11:53] LABS: ALKALINE PHOSPHATASE 81 U/L (45-117); BUN 15 mg/dl (7-24); CHOLESTEROL 146 mg/dL (<200); CREATININE 0.83 mg/dL (0.55-1.02); GAMMA GLUTAMYL TRANSPEPTIDASE 10 U/L (5-55); IRON 69 ug/dL (50-170); LDL CHOLESTEROL 78 mg/dL (9-159); SGOT/AST 9 IU/L (3-35); SGPT/ALT 20 U/L (12-78); T3 UPTAKE 31 % (31-39); THYROID STIM HORMONE (HS) 0.759 uIU/ml (0.358-4.75); THYROXINE (T4) TOTAL 10.7 ug/dl (4.8-13.9); TOTAL IRON BINDING CAPACITY 283 ug/dl (250-450); TRIGLYCERIDES 36 mg/dl (<150); URIC ACID 4.2 mg/dL (2.6-6.0)
[2021-08-22 12:06] LABS: BETA-HCG, QUANT < 1.0 mIU/mL (1-3)
[2021-08-22 13:54] LABS: MUCOUS 1+
[2021-08-23 05:06] LABS: RHEUMATOID ARTHRITIS FACTOR <10.0 IU/mL (<14.0)
[2021-08-23 12:07] LABS: ANTI-DSDNA ANTIBODIES <1 IU/mL (0-9)
== END | disposition home or self-care (01) ==
LOC: MRI 09:00 → LAB 09:02
PROVIDERS: ATTEND Family Medicine
DX: R42 Dizziness and giddiness (principal); R51.9 Headache, unspecified; E55.9 Vitamin D deficiency, unspecified; R53.83 Other fatigue; R74.8 Abnormal levels of other serum enzymes; R79.89 Other specified abnormal findings of blood chemistry

== ENCOUNTER → 2022-05-24 | Outpatient (CLI) | payer OTHER ==
[2022-05-24 15:43] LABS: HEMATOCRIT 43.2 % (37.0-47.0); MEAN CELL VOLUME 87.1 fl (81.0-99.0); MEAN CORPUSCULAR HGB CONC 35.6 g/dl (33.0-37.0); MEAN PLATELET VOLUME 11.6 fl (9.6-12.3); PLATELET COUNT AUTOMATED 167 10*3/uL (130-400); RED BLOOD COUNT 4.96 10*6/uL (4.10-5.10); RED CELL DISTRI WIDTH 12.5 % (0-14.5); RETICULOCYTE % 1.62 % (0.50-2.50); WHITE BLOOD COUNT 7.3 10*3/uL (4.8-10.8)
[2022-05-24 16:08] LABS: BILIRUBIN Negative (Negative); BLOOD Negative (Negative); CLARITY Clear (Clear); COLOR Yellow (Yellow); GLUCOSE Negative (Negative); KETONE Negative (Negative); LEUKO ESTERASE Negative (Negative); NITRITE Negative (Negative); UROBILINOGEN 0.2 E.U./dl (0.0-1.0)
[2022-05-24 16:14] LABS: VITAMIN D, 25-HYDROXY 22.7 ng/mL (30-100)
[2022-05-24 16:19] LABS: ALKALINE PHOSPHATASE 85 U/L (45-117); BUN 20 mg/dl (7-24); CHLORIDE 106 mmol/L (98-107); CHOLESTEROL 169 mg/dL (<200); CREATININE 0.93 mg/dL (0.55-1.02); GAMMA GLUTAMYL TRANSPEPTIDASE 18 U/L (5-55); IRON 74 ug/dL (50-170); LDL CHOLESTEROL 85 mg/dL (9-159); POTASSIUM 3.2 mmol/L (3.5-5.1); SGOT/AST 13 IU/L (3-35); SGPT/ALT 24 U/L (12-78); SODIUM 142 mmol/L (136-145); T3 UPTAKE 35 % (31-39); THYROXINE (T4) TOTAL 11.9 ug/dl (4.8-13.9); TOTAL PROTEIN 7.3 gm/dL (6.4-8.2); TRIGLYCERIDES 75 mg/dl (<150)
[2022-05-24 16:20] LABS: BACTERIA 2+
[2022-05-24 16:21] LABS: WBC 0-2 wbc/hpf (0-5)
[2022-05-24 16:22] LABS: CALCIUM OXALATE CRYSTALS 2+
[2022-05-24 16:25] LABS: THYROID STIM HORMONE (HS) 0.945 uIU/ml (0.358-4.75)
[2022-05-24 16:41] LABS: FERRITIN 72.9 ng/mL (10.0-291.0)
[2022-05-25 05:06] LABS: TOTAL PROTEIN, SERUM 6.7 g/dL (6.0-8.5)
[2022-05-25 08:08] LABS: RHEUMATOID FACTOR <10.0 IU/mL (<14.0)
[2022-05-25 10:59] LABS: ATYPICAL LYMPHS 1 % (0-0); TOTAL CELLS COUNTED 100 #CELLS; VACUOLATION OF NEUTROPHILS SLIGHT
[2022-05-25 11:00] LABS: BURR CELLS FEW; PLATELET SUFFICIENCY NORMAL (NORMAL)
[2022-05-25 12:07] LABS: ANTI-DSDNA ANTIBODIES <1 IU/mL (0-9)
[2022-05-25 14:07] LABS: A/G RATIO 1.6 (0.7-1.7); ALBUMIN 4.1 g/dL (2.9-4.4); ALPHA-1-GLOBULIN 0.2 g/dL (0.0-0.4); ALPHA-2-GLOBULIN 0.6 g/dL (0.4-1.0); BETA GLOBULIN 0.8 g/dL (0.7-1.3); GLOBULIN, TOTAL 2.6 g/dL (2.2-3.9); M-SPIKE Not Observed g/dL (Not Observed)
== END | disposition home or self-care (01) ==
LOC: LAB 14:57
PROVIDERS: ATTEND Family Medicine
DX: E78.5 Hyperlipidemia, unspecified (principal); E55.9 Vitamin D deficiency, unspecified; R79.89 Other specified abnormal findings of blood chemistry; R53.83 Other fatigue; R74.8 Abnormal levels of other serum enzymes

== ENCOUNTER 2022-11-16 18:33 | Emergency (ER) | payer OTHER ==
[~2022-11-16] VITALS: Ht 167.6 cm; Wt 68.0 kg
[2022-11-16 18:43] VITALS: BP 116/83
== END 2022-11-16 19:42 | disposition home or self-care (01) ==
LOC: ED 18:33
DX: G89.18 Other acute postprocedural pain (principal); G43.909 Migraine, unspecified, not intractable, without status migrainosus; Z88.6 Allergy status to analgesic agent; Z88.8 Allergy status to other drugs, medicaments and biological substances; Z90.49 Acquired absence of other specified parts of digestive tract; Z90.89 Acquired absence of other organs; Z98.51 Tubal ligation status; Z98.890 Other specified postprocedural states; Z87.891 Personal history of nicotine dependence

== ENCOUNTER 2023-05-06 19:34 | Emergency (ER) | payer OTHER ==
[~2023-05-06] VITALS: Ht 170.1 cm; Wt 81.6 kg
[2023-05-06] MEDS ORDERED: VYVANSE70 MG PO (19:50)
[2023-05-06] MEDS ORDERED: HYDROCODONE-AC1 EAC1 PO (19:51)
[2023-05-06 19:54] VITALS: BP 120/60
== END 2023-05-06 21:39 | disposition home or self-care (01) ==
LOC: ED 19:34
DX: S39.012A Strain of muscle, fascia and tendon of lower back, initial encounter (principal); Z88.8 Allergy status to other drugs, medicaments and biological substances; Z88.6 Allergy status to analgesic agent; Z90.49 Acquired absence of other specified parts of digestive tract; Z90.89 Acquired absence of other organs; Z98.51 Tubal ligation status; Z98.890 Other specified postprocedural states; Z87.891 Personal history of nicotine dependence; G43.909 Migraine, unspecified, not intractable, without status migrainosus; W10.9XXA Fall (on) (from) unspecified stairs and steps, initial encounter; Y93.89 Activity, other specified; Y92.89 Other specified places as the place of occurrence of the external cause; Y99.8 Other external cause status

== ENCOUNTER 2023-08-04 23:19 | Emergency (ER) | payer OTHER ==
[~2023-08-04 23:19] MED LIST changes: +VYVANSE70 MG PO
[2023-08-05] MEDS ORDERED: AMOX-CLAV 875-1 EACH PO (00:15)
[2023-08-05 00:26] VITALS: BP 152/82
== END 2023-08-05 00:34 | disposition home or self-care (01) ==
LOC: ED 23:19
DX: S01.511A Laceration without foreign body of lip, initial encounter (principal); Z88.8 Allergy status to other drugs, medicaments and biological substances; Z79.899 Other long term (current) drug therapy; Z90.49 Acquired absence of other specified parts of digestive tract; Z90.89 Acquired absence of other organs; Z98.890 Other specified postprocedural states; Z98.51 Tubal ligation status; Z87.891 Personal history of nicotine dependence; Y08.89XA Assault by other specified means, initial encounter; Y93.89 Activity, other specified; Y92.89 Other specified places as the place of occurrence of the external cause; Y99.8 Other external cause status

== ENCOUNTER 2024-09-15 09:17 | Emergency (ER) | payer OTHER ==
[~2024-09-15] VITALS: Ht 165.1 cm; Wt 81.6 kg
[~2024-09-15 09:17] MED LIST changes: +AMOX-CLAV 875-1 EACH PO
[2024-09-15 09:29] VITALS: BP 106/58
[2024-09-15] MEDS ORDERED: Ondansetron Hydrochloride 4 MG/2 ML VIAL IV ONE (09:40)
[2024-09-15] MEDS ORDERED: SODIUM CHLORIDE 0.9% 500 ML IV ONE (09:40)
[2024-09-15 10:02] LABS: BASO % 0.2 % (0.0-1.0); EOS # 0.1 10*3/uL (0.0-0.4); MEAN CELL VOLUME 87.9 fl (81.0-99.0); MEAN CORPUSCULAR HGB 29.7 pg (27.0-31.0); MEAN CORPUSCULAR HGB CONC 33.8 g/dl (33.0-37.0); MEAN PLATELET VOLUME 11.6 fl (9.6-12.3); MONO # 0.8 10*3/uL (0.1-1.0); MONO % 13.3 % (3.0-9.0); NEUT # 3.6 10*3/uL (2.3-7.9); NEUT % 61.1 % (47.0-73.0); PLATELET COUNT AUTOMATED 200 10*3/uL (130-400); RED BLOOD COUNT 4.78 10*6/uL (4.10-5.10); RED CELL DISTRI WIDTH 12.9 % (0-14.5)
[2024-09-15 10:02] LABS: BILIRUBIN Negative (Negative); BLOOD Negative (Negative); CLARITY Cloudy (Clear); COLOR Yellow (Yellow); GLUCOSE Negative (Negative); KETONE Trace (Negative); LEUKO ESTERASE Trace (Negative); NITRITE Negative (Negative); SPECIFIC GRAVITY 1.025 (1.001-1.030)
[2024-09-15 10:22] LABS: ALKALINE PHOSPHATASE 102 U/L (46-116); BUN 13 mg/dl (9-23); CHLORIDE 103 mmol/L (98-107); LIPASE 25 U/L (12-53); POTASSIUM 3.5 mmol/L (3.4-5.1); SGPT/ALT 16 U/L (5-49); TOTAL PROTEIN 6.5 gm/dL (6.0-8.0)
[2024-09-15] MEDS ORDERED: IOHEXOL 300 MG/ML 100 ML VIAL ONE (10:23)
[2024-09-15 10:36] LABS: BACTERIA 2+; CALCIUM OXALATE CRYSTALS 3+; MUCOUS 2+
[2024-09-15] MEDS ORDERED: CIPRO500 MG PO (11:52)
== END 2024-09-15 11:56 | disposition home or self-care (01) ==
LOC: ED 09:17
PROVIDERS: Internal Medicine
DX: N39.0 Urinary tract infection, site not specified (principal); K76.0 Fatty (change of) liver, not elsewhere classified; R11.2 Nausea with vomiting, unspecified; G43.909 Migraine, unspecified, not intractable, without status migrainosus; R11.0 Nausea; Z88.8 Allergy status to other drugs, medicaments and biological substances; Z88.5 Allergy status to narcotic agent; Z88.6 Allergy status to analgesic agent; Z90.49 Acquired absence of other specified parts of digestive tract; Z90.89 Acquired absence of other organs; Z98.51 Tubal ligation status; Z98.890 Other specified postprocedural states; Z87.891 Personal history of nicotine dependence

== ENCOUNTER → 2024-10-14 | Outpatient (CLI) | payer OTHER ==
[2024-10-14 12:33] LABS: ALKALINE PHOSPHATASE 101 U/L (46-116); BUN 14 mg/dl (9-23); CHLORIDE 103 mmol/L (98-107); POTASSIUM 3.4 mmol/L (3.4-5.1); SGPT/ALT 8 U/L (5-49); TOTAL PROTEIN 7.2 gm/dL (6.0-8.0)
[2024-10-15 05:06] LABS: ALPHA-1-ANTITRYPSIN, SERUM 150 mg/dL (101-187); HEP B SURFACE Ab, Qual Non Reactive (.)
[2024-10-15 14:07] LABS: ANTI-SMOOTH MUSCLE ANTIBODY 8 Units (0-19)
[2024-10-16 01:06] LABS: ALPHA 2-MACAROGLOBULINS 226 mg/dL (110-276); ALT (SGPT) P5P 10 IU/L (0-40); APOLIPOPROEIN A-1 112 mg/dL (116-209); BILIRUBIN, TOTAL 0.6 mg/dL (0.0-1.2); CHOLESTEROL, TOTAL 162 mg/dL (100-199); GGT 13 IU/L (0-60); GLUCOSE, SERUM 82 mg/dL (70-99); HAPTOGLOBIN 185 mg/dL (42-296); TRIGLYCERIDES 58 mg/dL (0-149)
== END | disposition home or self-care (01) ==
LOC: LAB 11:32
PROVIDERS: ATTEND Internal Medicine
DX: K76.0 Fatty (change of) liver, not elsewhere classified (principal)

== ENCOUNTER 2025-02-21 17:11 | Emergency (ER) | payer OTHER ==
[~2025-02-21] VITALS: Ht 165.1 cm; Wt 78.5 kg
[2025-02-21 17:17] VITALS: BP 139/81
[2025-02-21] MEDS ORDERED: Tdap Vaccine 0.5 ML SYR (Adult Vaccine) IM ONE (17:30)
[2025-02-21] MEDS ORDERED: CEPHALEXIN500 M1 PO (17:48)
[2025-02-21] MEDS ORDERED: NAPROSYN500 MG PO (17:48)
[2025-02-21] MEDS ORDERED: CEPHALEXIN 500 MG CAP PO ONE (17:50)
== END 2025-02-21 17:52 | disposition home or self-care (01) ==
LOC: ED 17:11
DX: S61.233A Puncture wound without foreign body of left middle finger without damage to nail, initial encounter (principal); L03.012 Cellulitis of left finger; G43.909 Migraine, unspecified, not intractable, without status migrainosus; E66.09 Other obesity due to excess calories; Z88.5 Allergy status to narcotic agent; Z88.8 Allergy status to other drugs, medicaments and biological substances; Z90.49 Acquired absence of other specified parts of digestive tract; Z98.890 Other specified postprocedural states; Z98.51 Tubal ligation status; Z87.891 Personal history of nicotine dependence; X58.XXXA Exposure to other specified factors, initial encounter; Y93.89 Activity, other specified; Y92.89 Other specified places as the place of occurrence of the external cause; Y99.8 Other external cause status